=== PATIENT | male | born 1985 | race African-American/Black ===

== ENCOUNTER 2020-03-26 09:25 | Emergency (ER) | payer OTHER, SELFPAY ==
[2020-03-27 15:31] LABS: SARS-CoV-2 MS2 Positive; SARS-CoV-2 N Gene Negative; SARS-CoV-2 S Gene Negative; SARS-CoV-2 orf1ab Negative
== END 2020-03-26 09:53 | disposition home or self-care (01) ==
LOC: ERS 09:25
DX: Z20.828 Contact with and (suspected) exposure to other viral communicable diseases (principal)
CPT/HCPCS: 87635; 99283; U0003

== ENCOUNTER 2024-02-24 16:49 | Emergency (ER) | payer SELFPAY | END 2024-02-24 18:01 | disposition home or self-care (01) | LOC: ERS 16:49 | DX: S49.91XA Unspecified injury of right shoulder and upper arm, initial encounter (principal); F17.210 Nicotine dependence, cigarettes, uncomplicated; V89.2XXA Person injured in unspecified motor-vehicle accident, traffic, initial encounter ==